=== PATIENT | female | born 1995 | race Caucasian/White ===

== ENCOUNTER 2020-04-01 22:40 | Emergency (ER) | payer OTHER ==
[~2020-04-01] VITALS: Ht 157.5 cm; Wt 65.9 kg
--- NOTE | 2020-04-01 22:49 | PHYS DOC ---
Past History Past Medical History: UTI Past Medical History ASD- post repair as a child.. Scoliosis post repair 2010 General Adult HPI: HPI: ".. I 've been hurting on my right flank..and Rt.lower abd.now for three days..it just seemed worse tonight...and I had a fever..." Patient is a 24 year old female who presents with above hx and complaints right flank and lower right abdomen pain x3 days. Patient denies any trauma. Patient denies any bad food intake. Did eat spaghetti at 8 PM tonight or 20,:00 hours. Reports no problems with defecation or urination. Has had previous medical history of urinary tract infections, spinal fusion 2010 and ASD repair. No family personal history of colitis , ovarian cyst, renal stones. Patient has mild psoas on right. Patient has rebound pain to right lower quadrant. Patient did have some dysuria last week. No history of recent travel outside the [place] area. No specific ill contacts. Review of Systems: Review of Systems: Constitutional: Complains of fever or chills Eyes: Denies change in visual acuity HENT: Denies nasal congestion or sore throat Respiratory: Denies cough or shortness of breath Cardiovascular: Denies chest pain or edema GI: Complains of right flank abdominal pain, nausea,. Denies vomiting, bloody stools or diarrhea : Denies dysuria Musculoskeletal: Complains of right flank back pain. Integument: Denies rash Neurologic: Denies headache, focal weakness or sensory changes Endocrine: Denies polyuria or polydipsia Lymphatic: Denies swollen glands Psychiatric: Denies depression or anxiety Family History: Family History: Noncontributory Current Medications: Current Meds: See nursing for home meds Allergies: Allergies: No known drug allergies Physical Exam: PE: Constitutional: Well developed, well nourished, moderate acute distress, non- toxic appearance. [] HENT: Normocephalic, atraumatic, bilateral external ears normal, oropharynx moist, no oral exudates, nose normal. [] Eyes: PERRLA, EOMI, conjunctiva normal, no discharge. Glasses Neck: Normal range of motion, no tenderness, supple, no stridor. [] Cardiovascular: Tachycardia heart rate regular rhythm, no murmur [] Lungs & Thorax: Bilateral breath sounds equal apex on auscultation [] Abdomen: Bowel sounds normal, soft, right lower quadrant tenderness, no masses, no pulsatile masses. Rebound to right lower quadrant. Right flank pain that radiates to groin on percussion Skin: Warm, dry, no erythema, no rash. [] Back: No tenderness, right CVA tenderness. [] Extremities: No tenderness, no cyanosis, no clubbing, ROM intact, no edema. Mild psoas on right Neurologic: Alert and oriented X 3, normal motor function, normal sensory function, no focal deficits noted. [] Psychologic: Affect anxious, judgement normal, mood normal. [] EKG: EKG: [] Radiology/Procedures: Radiology/Procedures: [[place] [address] IMAGING REPORT Signed PATIENT: ADDIE OLIVAREZ ACCOUNT: [id number] : 1995 LOCATION: ER AGE: 24 SEX: F EXAM STATUS: REG ER ORD. PHYSICIAN: DOMI HURLEY MD REASON: Abdomen pain mostly right sided. Omni 300 75cc PROCEDURE: CT ABD PELV W/ORAL&IV CONTRAST CT abdomen and pelvis with contrast PQRS statement: CT scans at this facility use dose reduction including either automated exposure control, iterative reconstructions, and /or weight based radiation dosing via mA and kV modification when appropriate to reduce radiation dose to as low as reasonably achievable. HISTORY: Abdominal pain right side. Contrast: 75 mL Omnipaque 300 intravenous contrast. Abdomen findings: Thoracolumbar pedicle screws and fusion rods. Shallow disc bulges lower lumbar spine. Thoracal lumbar scoliosis. There is dilation of the common bile direct diameter 15 mm with lesser distention of the central intrahepatic ducts. Gallbladder is unremarkable. There appears to be some tapering of the common duct distally. Pancreas, liver, spleen, adrenal glands and left kidney are unremarkable. Striated right renal nephrogram typical of pyelonephritis. No hydronephrosis. Slight distention and urothelial enhancement right ureter likely pyelitis. Appendix is negative. No obstruction or inflammation the GI tract. No abdominal fluid or adenopathy. Pelvis findings: Uterus, ovaries, bladder, rectum and bones are unremarkable. IMPRESSION: 1. Striated right renal nephrogram and mild distention and enhancement of the right ureter likely representing pyelonephritis and ascending pyelitis. No hydronephrosis. 2. Appendix is negative. 3. Fusiform dilation of the common bile duct with a diameter 15 mm proximal, with some tapering of the duct distally. 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 Electronically signed by: Jane Juarez MD (04/02/2020 1:38 AM) [facility] DICTATED AND SIGNED BY: JANE JUAREZ MD DATE: 04/02/20 013 CC: DOMI HURLEY MD; PCP,UNKNOWN ~MTH0 0 ][place] [address] IMAGING REPORT Signed PATIENT: ADDIE OLIVAREZ ACCOUNT: [id number] : 1995 LOCATION: ER AGE: 24 SEX: F EXAM STATUS: REG ER ORD. PHYSICIAN: DOMI HURLEY MD REASON: abd. pain rt. PROCEDURE: ACUTE ABDOMEN SERIES PA chest and AP upright supine abdomen x-rays HISTORY: Abdominal pain right side. FINDINGS: Heart and mediastinum unremarkable. No pulmonary opacities or pleural effusions. Thoracolumbar fusion rods and mild scoliosis. No pneumoperitoneum. There is mild gas within the large and small bowel and mild volume of stool within the large bowel. No dilated bowel loops or abnormal air-fluid levels. Small left pelvic calcifications which are indeterminate, statistically most likely phleboliths. IMPRESSION: No acute process in the chest. No bowel obstruction evident. Mild volume of stool within the large bowel. Electronically signed by: Jane Juarez MD (04/02/2020 12:22 AM) [facility] DICTATED AND SIGNED BY: JANE JUAREZ MD DATE: 04/02/2020 CC: DOMI HURLEY MD; PCP,UNKNOWN ~MTH0 0 Heart Score: Risk Factors: Risk Factors: DM, Current or recent (<one month) smoker, HTN, HLP, family history of CAD, obesity. Risk Scores: Score 0 - 3: 2.5% MACE over next 6 weeks - Discharge Home Score 4 - 6: 20.3% MACE over next 6 weeks - Admit for Clinical Observation Score 7 - 10: 72.7% MACE over next 6 weeks - Early Invasive Strategies Course & Med Decision Making: Course & Med Decision Making Pertinent Labs and Imaging studies reviewed. (See chart for details) Push clear fluids. Take Tylenol and ibuprofen for pain. For marked pain may take Vicoprofen. Take Cipro 500 mg twice a day. Follow-up cultures. Recommend follow-up with urology. Consider following with urology Dr. Cam Cano [phone]. May take Zofran 8 mg at 4 times a day for nausea and vomiting. Follow-up urine cultures. Impression: 1. Abdomen Pain 2. Pyleonephritis 3. Renal colic [] Dragon Disclaimer: Howard Disclaimer: This electronic medical record was generated, in whole or in part, using a voice recognition dictation system. Departure Departure: Referrals: PCP,UNKNOWN (PCP) Scripts Ciprofloxacin Hcl (CIPRO) 500 Mg Tablet 500 MG PO BID for pyelonephritis for 10 Days, #20 TAB Prov: DOMI HURLEY MD 04/02/20 Ondansetron Hcl (ZOFRAN) 4 Mg Tablet 8 MG PO QIDPRN for nv, #30 TAB Prov: DOMI HURLEY MD 04/02/20 Hydrocodone/Ibuprofen (HYDROCODONE-IBUPROFEN 7.5-200 ) 1 Each Tablet 1 TAB PO PRN Q6HRS PRN for PAIN, #30 TAB 0 Refills Prov: DOMI HURLEY MD 04/02/20 Dragon Disclaimer This chart was dictated in whole or in part using Voice Recognition software in a busy, high-work load, and often noisy Emergency Department environment. It may contain unintended and wholly unrecognized errors or omissions. DOMI HURLEY MD Apr 01, 2020 22:49
[2020-04-01] MEDS ORDERED: MORPHINE SULFATE 10 MG/ML SYRINGE. SQ ONE (23:30)
[2020-04-01] MEDS ORDERED: cefTRIAXone SODIUM 1 GM VIAL ONE (23:34)
[2020-04-01] MEDS ORDERED: IV NORMAL SALINE 50ML 50 ML ONE (23:34)
[2020-04-01 23:39] LABS: BARBITURATES NEG (NEG); BENZODIAZEPINES NEG (NEG); CANNABINOIDS NEG (NEG); COCAINE NEG (NEG); METHADONE NEG (NEG); OPIATES NEG (NEG); PHENCYCLIDINE NEG (NEG)
[2020-04-01 23:42] LABS: AMPHETAMINE/METHAMPHETAMINE NEG (NEG)
[2020-04-01 23:45] LABS: BACTERIA,URINE FEW /HPF (0-FEW); BILIRUBIN,URINE NEG (NEG); CLARITY,URINE CLEAR; COLOR,URINE COLORLESS; GLUCOSE,URINE NEG (NEG); NITRITE,URINE NEG (NEG); RBC,URINE 0 /HPF (0-2); SQUAMOUS EPITHELIAL CELL,UR FEW /LPF; UROBILINOGEN,URINE 0.2 mg/dL (0.2 mg/dL)
[2020-04-02] MEDS ORDERED: IOHEXOL 240 MG/ML 50ML VIAL. ONE (00:01)
[2020-04-02 00:09] LABS: BASO % 0 % (0-3); CALCIUM 9.2 mg/dL (8.5-10.1); CREATININE 0.9 mg/dL (0.6-1.0); EOS % 0 % (0-3); GFR 77.6; HEMATOCRIT 37.1 % (36.0-47.0); HEMOGLOBIN 12.4 g/dL (12.0-15.5); LYMPH # 0.9 x10^3/uL (1.0-4.8); LYMPH % 8 % (24-48); MEAN CORPUSCULAR HEMOGLOBIN 30 pg (25-35); MEAN CORPUSCULAR HGB CONC 33 g/dL (31-37); MEAN CORPUSCULAR VOLUME 90 fL (79-100); MONO # 1.3 x10^3/uL (0.0-1.1); MONO % 11 % (0-9); NEUT # 9.6 x10^3uL (1.8-7.7); NEUT % 81 % (31-73); PLATELET COUNT 210 x10^3/uL (140-400); POTASSIUM 3.5 mmol/L (3.5-5.1); RED BLOOD COUNT 4.14 x10^6/uL (3.50-5.40); RED CELL DISTRIBUTION WIDTH 12.6 % (11.5-14.5); WHITE BLOOD COUNT 11.9 x10^3/uL (4.0-11.0)
[2020-04-02 00:15] LABS: ALBUMIN 3.7 g/dL (3.4-5.0); DIRECT BILIRUBIN 0.3 mg/dL (0.0-0.2); TOTAL BILIRUBIN 0.9 mg/dL (0.2-1.0); TOTAL PROTEIN 7.9 g/dL (6.4-8.2)
[2020-04-02] MEDS ORDERED: CONTRAST GIVEN. MC PRN (00:15)
--- NOTE | 2020-04-02 00:25 | RAD ---
PA chest and AP upright supine abdomen x-rays HISTORY: Abdominal pain right side. FINDINGS: Heart and mediastinum unremarkable. No pulmonary opacities or pleural effusions. Thoracolum bar fusion rods and mild scoliosis. No pneumoperitoneum. There is mild gas within the large and small bowel and mild volume of stool within the large bowel. No dilated bowel loops or abnormal air-fluid levels. Small left pelvic calcifications which are indeterminate, statistically most likely phlebolit hs. IMPRESSION: No acute process in the chest. No bowel obstruction evident. Mild volume of stool within the large bowel. Electronically signed by: Hebert Juarez MD (04/02/2020 12:22 AM) [facility]
[2020-04-02] MEDS ORDERED: IV RINGERS SOLUTION,LACTATED 1,000 ML IV SCH (00:30)
[2020-04-02] MEDS ORDERED: FAMOTIDINE 20 MG/2 ML VIAL IVP ONE (00:30)
[2020-04-02] MEDS ORDERED: ONDANSETRON PF 4 MG/2 ML VIAL. IVP ONE (00:30)
[2020-04-02] MEDS ORDERED: IOHEXOL 300 MG/ML 75 ML VIAL. IV ONE (00:30)
[2020-04-02 01:40] VITALS: BP 124/68
--- NOTE | 2020-04-02 01:40 | RAD ---
CT abdomen and pelvis with contrast PQRS statement: CT scans at this facility use dose reduction including either automated exposure cont rol, iterative reconstructions, and /or weight based radiation dosing via mA and kV modification when appropriate to reduce radiation dose to as low as reasonably achievable. HISTORY: Abdominal pain right side. Contrast: 75 mL Omnipaque 300 intravenous contrast. Abdomen findings: Thoracolumbar pedicle screws and fusion rods. Shallow disc bulges lower lumbar spin e. Thoracal lumbar scoliosis. There is dilation of the common bile direct diameter 15 mm with lesser distention of the central intrahepatic ducts. Gallbladder is unremarkable. There appears to be some t apering of the common duct distally. Pancreas, liver, spleen, adrenal glands and left kidney are unre markable. Striated right renal nephrogram typical of pyelonephritis. No hydronephrosis. Slight disten tion and urothelial enhancement right ureter likely pyelitis. Appendix is negative. No obstruction or inflammation the GI tract. No abdominal fluid or adenopathy. Pelvis findings: Uterus, ovaries, bladder, rectum and bones are unremarkable. IMPRESSION: 1. Striated right renal nephrogram and mild distention and enhancement of the right ureter likely rep resenting pyelonephritis and ascending pyelitis. No hydronephrosis. 2. Appendix is negative. 3. Fusiform dilation of the common bile duct with a diameter 15 mm proximal, with some tapering of th e duct distally. 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 Electronically signed by: Hebert Juarez MD (04/02/2020 1:38 AM) [facility]
[2020-04-02] MEDS ORDERED: ONDA4TAB7 PO (01:51)
[2020-04-02] MEDS ORDERED: HYDR-1179 PO (01:51)
[2020-04-02] MEDS ORDERED: CIPR500T94 PO (01:51)
[2020-04-02] MEDS ORDERED: KETOROLAC 30 MG/ML VIAL. IVP ONE (02:30)
== END 2020-04-02 02:15 | disposition home or self-care (01) ==
LOC: ER 22:40
DX: N20.0 Calculus of kidney (principal); Z87.440 Personal history of urinary (tract) infections
CPT/HCPCS: 36415; 74022; 74177; 80048; 80076; 80307; 81001; 81025; 82150; 83690; 85025; 87086; 96365; 96367; 96372; 96375; 99285; J0696; J1885; J2270; J2405; J3490; J7120; Q9967